=== PATIENT | female | born 2000 | race Two or more races ===

== ENCOUNTER 2023-05-31 10:50 | Emergency (ER) | payer MEDICAID, OTHER ==
[~2023-05-31] VITALS: Ht 154.9 cm; Wt 56.7 kg
[2023-05-31 11:55] LABS: Urine Bacteria NONE SEEN /hpf (None Seen); Urine Blood Negative /uL (Negative); Urine Mucus FEW (None Seen); Urine Specific Gravity 1.031 (1.001-1.035); Urine WBC 3 /hpf (0 - 5)
[2023-05-31 13:10] LABS: Basophils # (auto) 0.1 10 ^3/uL (0-0.2); Eosinophils # (auto) 0.2 10 ^3/uL (0-0.8); Eosinophils % (auto) 4.7 % (0.0-7.0); Hematocrit 40.5 % (36.0-46.0); Hemoglobin 13.9 g/dL (12.2-16.2); Lymphocytes # (auto) 1.1 10 ^3/uL (0.4-5.4); Lymphocytes % (auto) 21.3 % (10.0-50.0); Mean Corpuscular Hemoglobin 32.6 pg (28.0-32.0); Mean Corpuscular Hgb Conc. 34.2 g/dL (32.0-36.0); Mean Corpuscular Volume 95.2 fL (80.0-100.0); Monocytes # (auto) 0.3 10 ^3/uL (0-1.3); Monocytes % (auto) 5.7 % (0.0-12.0); Neutrophils # (auto) 3.6 10 ^3/uL (1.6-8.6); Neutrophils % (auto) 67.3 % (37.0-80.0); Red Blood Cells 4.26 10^6/uL (4.0-5.20); Red Cell Distribution Width 12.5 % (11.8-14.3); White Blood Cell 5.3 10^3/uL (4.4-10.8)
[2023-05-31 13:33] LABS: Albumin 4.1 g/dL (3.4-5.0); Calcium 9.5 mg/dL (8.5-10.1); Potassium 3.9 mmol/L (3.5-5.1)
[2023-05-31 13:38] LABS: BUN/Creatinine Ratio 10.5 (10.0-20.0); Bilirubin, Total 0.5 mg/dL (0.2-1.0); Total Protein 7.7 g/dL (6.4-8.2)
[2023-05-31] MEDS ORDERED: CEPH250C PO (15:11)
[2023-05-31 17:00] VITALS: BP 110/68; PULSE 90; RESP 16; TEMP 97.8; O2SAT 98
== END 2023-05-31 17:17 | disposition home or self-care (01) ==
LOC: ER 10:50
DX: O23.41 Unspecified infection of urinary tract in pregnancy, first trimester (principal); O21.8 Other vomiting complicating pregnancy; N39.0 Urinary tract infection, site not specified; R10.2 Pelvic and perineal pain; Z3A.01 Less than 8 weeks gestation of pregnancy
CPT/HCPCS: 36415; 76801; 80053; 81001; 84702; 85025

== ENCOUNTER 2023-09-15 03:45 | Emergency (ER) | payer MEDICAID ==
[~2023-09-15] VITALS: Ht 154.9 cm; Wt 55.0 kg
[~2023-09-15 03:45] MED LIST: CEPH250C PO
[2023-09-15] MEDS ORDERED: ACET500T58 PO (04:16)
[2023-09-15] MEDS ORDERED: CIPR1SUS8 OT (04:16)
[2023-09-15 04:41] VITALS: BP 98/58; TEMP 98.9
[2023-09-15 04:44] VITALS: PULSE 71; RESP 18; O2SAT 98
== END 2023-09-15 04:49 | disposition home or self-care (01) ==
LOC: ER 03:45
DX: H72.92 Unspecified perforation of tympanic membrane, left ear (principal)